=== PATIENT | female | born 1955 | race Caucasian/White ===

== ENCOUNTER 2016-08-09 11:44 | Inpatient (IN) | payer OTHER ==
[~2016-08-09] VITALS: Ht 149.9 cm; Wt 56.0 kg
[~2016-08-09 11:44] MED LIST: HYDR-3498 PO; OMEP20CA16 PO
[2016-08-09] MEDS ORDERED: SOD CHLORIDE 0.9% 1,000 ML IV STA (12:27)
--- NOTE | 2016-08-09 12:57 | RADRPT ---
PROCEDURE: XR Chest AP portable CLINICAL INDICATION: Chest pain TECHNIQUE: An AP portable radiograph of the chest was submitted. COMPARISON: None. FINDINGS: Support Hardware: None Cardiovascular: The cardiovascular silhouette appears unremarkable, except for atherosclerotic bowling e involving the aorta. Lung Haines: The lung haines appear clear with no nodule, alveolar infiltrate, for a interstitial pr ominence evident. Pleural Spaces: No pneumothorax or pleural effusion is identified. Osseous Structures: The osseous structures appear intact. Soft Tissues: Lobulated soft tissue density projects to the left axilla. IMPRESSION: 1. Lobulated calcific density projects to the left axilla. This could represent calcified adenopat hy or an external artifact. Clinical correlation is indicated. 2. Atherosclerotic aorta. 3. Otherwise, unremarkable portable chest. Physician Miriam Date Time Electronically viewed and signed by Jeanne Arevalo Physician on 08/09/2016 12:57 /
[2016-08-09 12:58] LABS: BASOPHILS % 0.7 % (0.0-2.0); EOSINOPHILS % 0.4 % (0.0-7.0); HEMATOCRIT 39.9 % (37.0-47.0); HEMOGLOBIN 13.6 g/dl (12.0-16.0); INR 0.98; LYMPHOCYTES # 1.3 10^3/ul (0.8-2.9); LYMPHOCYTES % 35.1 % (15.0-51.0); MEAN CORPUSCULAR HEMOGLOBIN 29.9 pg (29.0-33.0); MEAN PLATELET VOLUME 8.1 fl (7.4-10.4); MONOCYTE # 0.3 10^3/ul (0.3-0.9); NEUTROPHIL # 2.1 10^3/ul (1.6-7.5); NEUTROPHILS % 56.8 % (39.0-77.0); PLATELET COUNT 211 10^3/UL (140-440); RED BLOOD COUNT 4.54 10^6/ul (4.20-5.40); RED CELL DISTRIBUTION WIDTH 12.8 % (11.5-14.5); UNCORRECTED WBC 3.8 10^3/ul (4.8-10.8); WHITE BLOOD COUNT 3.8 10^3/ul (4.8-10.8)
[2016-08-09 12:59] LABS: PARTIAL THROMBOPLASTIN TIME 30.5 Sec (25.0-35.0)
[2016-08-09 13:01] LABS: CHLORIDE 101 mmol/L (97-110); CONDITION 1; POTASSIUM 3.5 mmol/L (3.5-5.1); SODIUM 144 mmol/L (135-144)
[2016-08-09 13:04] LABS: ANION GAP 16 (8-16); BLOOD UREA NITROGEN 8 mg/dl (7-20); CARBON DIOXIDE 31 mmol/L (21-31); CREATININE 0.49 mg/dl (0.44-1.00)
[2016-08-09 13:05] LABS: CALCIUM 9.1 mg/dl (8.4-10.2); GLUCOSE 91 mg/dl (70-220)
[2016-08-09 13:10] LABS: CREATINE KINASE 106 IU/L (23-200)
[2016-08-09 13:13] LABS: CK-MB 2.23 ng/ml (0.0-2.4)
[2016-08-09] MEDS ORDERED: OMEP20CA16 PO (13:14)
[2016-08-09] MEDS ORDERED: SIMV10TA PO (13:14)
[2016-08-09 13:24] LABS: TROPONIN-I < 0.012 ng/ml (0.00-0.12)
--- NOTE | 2016-08-09 13:40 | ERA ---
ER Documentation Chief Complaint Date/Time DATE: 08/09/16 TIME: 13:38 Chief Complaint sudden onset dizziness for about 2 wks. chest pain noted with onset HPI This is a 61-year-old female who presents to the emergency room for evaluation of dizziness and mild chest pain. She states that her chest pain started approximately 1 day ago. She localizes it to the center of her chest and describes as a pressure-like sensation with no radiation. She describes her dizziness as a room spinning sensation worse with change in position. No fevers , no palpitations associated with this. No aggravating or relieving factors. ROS All systems reviewed and are negative except as per history of present illness. Medications Home Meds Reported Medications Simvastatin* (Zocor*) 10 Mg Tablet, 10 MG PO QHS, #30 TAB 08/09/16 Omeprazole* (Omeprazole*) 20 Mg Capsule.dr, 20 MG PO DAILY, #30 CAP 08/09/16 Allergies Allergies: Coded Allergies: No Known Allergy (Unverified , 08/09/16) PMhx/Soc Medical and Surgical Hx: pt denies Surgical Hx History of Surgery: No Anesthesia Reaction: No Hx Neurological Disorder: No Hx Respiratory Disorders: No Hx Cardiac Disorders: Yes (hyperlipidemia) Hx Psychiatric Problems: No Hx Miscellaneous Medical Probl: Yes (GERD) Hx Alcohol Use: No Hx Substance Use: No Hx Tobacco Use: No Smoking Status: Never smoker Physical Exam Vitals Vital Signs Date Time Temp Pulse Resp B/P Pulse Ox O2 Delivery O2 Flow Rate FiO2 08/09/16 12:30 97.9 62 20 157/69 98 Room Air 08/09/16 11:51 97.9 65 20 170/74 98 Physical Exam INITIAL VITAL SIGNS: Reviewed by me GENERAL: The patient is well developed and appropriate for usual state of health in no apparent distress HEENT: Pupils equal, round, and reactive to light. EOMI. There is no scleral icterus. NECK: C-spine is soft and supple, there is no meningismus. There is no cervical lymphadenopathy. LUNGS: Clear to auscultation bilaterally. There are no rales, wheezes or rhonchi. HEART: Regular rate and rhythm, no murmurs, clicks, rubs or gallops. ABDOMEN: Soft, non-tender, non-distended. There are bowel sounds in all four quadrants. No rebound or guarding. EXTREMITIES: There is no peripheral cyanosis or edema. No focal swelling or erythema. NEUROLOGICAL: The patient moves all four extremities with 5/5 strength. Cranial nerves II - XII are intact. Normal gait. Alert and oriented SKIN: There is no apparent rash or petechiae. HEME/LYMPHATIC: There is no evidence of excessive bruising or lymphedema. PSYCHIATRIC: The patient does not appear anxious or depressed. Result Diagram: 08/09/16 1235 08/09/16 1235 Results 24 hrs Laboratory Tests Test 08/09/16 12:35 Activated Partial Thromboplast Time 30.5Sec Anion Gap 16 Basophils # 0.010^3/ul Basophils % 0.7% Blood Urea Nitrogen 8mg/dl Calcium Level 9.1mg/dl Carbon Dioxide Level 31mmol/L Chloride Level 101mmol/L Creatine Kinase 106IU/L Creatine Kinase Index 2.1 Creatinine 0.49mg/dl Creatinine Kinase MB (Mass) 2.23ng/ml Eosinophils # 0.010^3/ul Eosinophils % 0.4% Glucose Level 91mg/dl Hematocrit 39.9% Hemoglobin 13.6g/dl INR International Normalized Ratio 0.98 Lymphocytes # 1.310^3/ul Lymphocytes % 35.1% Mean Corpuscular Hemoglobin 29.9pg Mean Corpuscular Hemoglobin Concent 34.0g/dl Mean Corpuscular Volume 88.0fl Mean Platelet Volume 8.1fl Monocytes # 0.310^3/ul Monocytes % 7.0% Neutrophils # 2.110^3/ul Neutrophils % 56.8% Nucleated Red Blood Cells # 0.010^3/ul Nucleated Red Blood Cells % 0.0/100WBC Platelet Count 97593^3/UL Potassium Level 3.5mmol/L Prothrombin Time 13.0Sec Prothrombin Time Ratio 1.0 Red Blood Count 4.5410^6/ul Red Cell Distribution Width 12.8% Sodium Level 144mmol/L Troponin I < 0.012ng/ml White Blood Count 3.810^3/ul Current Medications Medications (Trade) Dose Ordered Sig/Gonsalo Route PRN Reason Start Time Stop Time Status Last Admin Dose Admin Sodium Chloride (NS) 1,000 ml @ 1,000 mls/hr Q1H STAT IV 08/09/16 12:27 08/09/16 13:26 DC 08/09/16 12:49 Ondansetron HCl (Zofran Inj) 4 mg ER BRIDGE PRN IV NAUSEA AND/OR VOMITING 08/09/16 14:00 08/10/16 13:59 Acetaminophen (Tylenol Tab) 650 mg ER BRIDGE PRN PO MILD PAIN/FEVER 08/09/16 14:00 08/10/16 13:59 Procedures/MDM EKG: Rate/Rhythm: [Normal Sinus Rhythm] QRS, ST, T-waves: [No changes consistent w/ acute ischemia] Impression: [No evidence of ischemia or arrhythmia] Chest X-ray 1V Interpreted by me: Soft Tissue: No acute abnormalities Bones: No acute abnormalities Mediastinum/Cardiac Silhouette/Lungs: [No acute abnormalities] This 61-year-old female presents to the emergency room for evaluation of chest pain. This patient does have history of hypertension and hyperlipidemia. First EKG is nonischemic, first troponin is normal. Chest x-ray is also normal. However given this patient's age and risk factors she will be placed in at this time for cardiac evaluation. The patient is okay the plan of care. She is hemodynamically stable at this time. Not hypoxic, will be placed in for admission under the care of her panel physician Dr. Bush. Departure Diagnosis: Primary Impression: Chest pain Additional Impressions: Dizziness Leukopenia Condition: Stable AIMEE PEREZ DO Aug 09, 2016 13:40
[2016-08-09] MEDS ORDERED: ACETAMINOPHEN 325 MG TAB PO PRN ×2 (14:00→14:30)
[2016-08-09] MEDS ORDERED: ONDANSETRON 4 MG INJ IV PRN ×2 (14:00→14:30)
[2016-08-09 14:13] VITALS: TEMP 97.9
[2016-08-09] MEDS ORDERED: MAGNESIUM HYDROXIDE 30ML CUP PO PRN (14:30)
[2016-08-09] MEDS ORDERED: LORAZEPAM 2 MG INJ IV PRN (14:30)
[2016-08-09] MEDS ORDERED: DOCUSATE SODIUM 100 MG CAP PO PRN (14:30)
[2016-08-09] MEDS ORDERED: ALBUTEROL/IPRATROPIUM (NEB) 3 ML AMP HHN PRN (14:30)
[2016-08-09] MEDS ORDERED: NACL 0.9% 3 ML SYG IV SCH (14:30)
[2016-08-09] MEDS ORDERED: hydrALAzine 20 MG INJ IV PRN (14:30)
[2016-08-09] MEDS ORDERED: HYDROCODONE/APAP (5/325) TAB PO PRN (14:30)
[2016-08-09] MEDS ORDERED: NA PHOSPHATE/BIPHOS 133 ML ENEMA PR PRN (14:30)
[2016-08-09] MEDS ORDERED: morphine 2 MG INJ IV PRN (14:30)
[2016-08-09] MEDS ORDERED: NITROGLYCERIN (SL) 0.4 MG TAB SL PRN (14:30)
[2016-08-09 15:06] VITALS: Ht 149.9 cm; Wt 56.0 kg
[2016-08-09 15:20] LABS: CREATINE KINASE 85 IU/L (23-200)
[2016-08-09 15:25] VITALS: BP 152/72; PULSE 65; RESP 20
[2016-08-09 15:31] LABS: CK-MB 1.81 ng/ml (0.0-2.4)
[2016-08-09 15:43] LABS: TROPONIN-I < 0.010 ng/ml (0.00-0.12)
[2016-08-09 16:05] VITALS: BP 136/70; RESP 18
--- NOTE | 2016-08-09 16:07 | HP ---
DATE OF ADMISSION: 08/09/2016 CHIEF COMPLAINT: A 61-year-old with chief complaint of chest pain and dizziness. HISTORY OF PRESENT ILLNESS: A 61-year-old female with past medical history of high cholesterol and GERD who presented to the emergency room. Apparently, the patient has been having some chest pain and some dizziness symptoms. The chest pain started about a day ago. She describes it as a pressure -like sensation, substernal, nonradiating. She also had some spinning sensation with dizziness that was worse with positioning, but denies any upper or lower GI bleeding, no loss of consciousness, no headaches, no fevers, no palpitations, no fevers or chills, no upper or lower GI bleeding. PAST MEDICAL HISTORY: As stated above. ALLERGIES: NO KNOWN DRUG ALLERGIES. MEDICATIONS AT HOME: 1. Simvastatin 10 mg at bedtime. 2. Omeprazole 20 mg daily. PAST SURGICAL HISTORY: None. FAMILY HISTORY: Unknown. SOCIAL HISTORY: Negative for smoking, drinking, or IV drug abuse. PHYSICAL EXAMINATION: VITAL SIGNS: T-max 97.9, pulse 62, respirations 20, blood pressure is to 157 to 170 systolic over 6 9 to 74 diastolic, saturating at 98% on room air. GENERAL: The patient is lying in bed, presently getting echocardiogram, no acute distress. HEENT: Pupils equal, round, react to light. Extraocular muscles intact. NECK: Supple, no thyromegaly. LUNGS: Clear to auscultation bilaterally. No wheezes. CARDIOVASCULAR: S1, S2 heard. No rubs or gallops. ABDOMEN: Soft, nontender, nondistended. Normal bowel sounds. No rebound or guarding. MUSCULOSKELETAL: No lower extremity edema bilaterally. NEUROLOGIC: No focal deficits. LABORATORIES: CBC is completely normal. The basic metabolic panel is normal. Troponin is negative x1. Coags are normal. IMAGING: A chest x-ray was performed, shows lobulated, calcified density projection to the left axi lla, could represent calcified adenopathy or external artifact, otherwise, unremarkable chest x-ray. ASSESSMENT AND PLAN: This is a 61-year-old female with dizziness symptoms and chest pain. We want to admit her to rule out for acute coronary syndrome, so admit her. 1. Chest pain. Admit her to telemetry floor; put her on morphine, oxygen, nitroglycerin, and oxyge n. Monitor blood pressure, trend her troponins as well, the first one is negative. She will be on again high dose aspirin. Get a 2D echocardiogram as well. If there are any abnormalities in any of these tests consider cardiology consult for possible stress test, try to clarify family history as well. 2. History of high cholesterol. Again, check a lipid panel, we will also check a TSH and an A1c. 3. History of gastroesophageal reflux disease. She will be on proton pump inhibitor. 4. GI prophylaxis PPI. 5. Deep venous thrombosis prophylaxis, heparin subcutaneously. We will continue to follow. Dictated By: LV SMILEY Conf#: [id number] DID#: [id number]
[2016-08-09] MEDS: SOD CHLORIDE 0.45% 1,000 ML IV SCH (16:22)
[2016-08-09 16:34] VITALS: PULSE 64
[2016-08-09 20:18] VITALS: BP 142/69; RESP 20
[2016-08-09 20:22] VITALS: PULSE 69
[2016-08-09 20:31] LABS: CREATINE KINASE 74 IU/L (23-200)
[2016-08-09 20:42] LABS: CK-MB 1.29 ng/ml (0.0-2.4)
[2016-08-09 20:45] LABS: TROPONIN-I < 0.012 ng/ml (0.00-0.12)
[2016-08-09] MEDS ORDERED: NON-FORMULARY/PATIENT OWN MED (Simvastatin* (Zocor*) 10 MG) PO SCH (21:00)
[2016-08-09] MEDS ORDERED: ATORVASTATIN 10 MG TAB PO SCH (21:00)
[2016-08-09] MEDS: HEPARIN 5,000 UNIT/0.5 ML SYG SC SCH (21:43)
[2016-08-10] VITALS (9 sets, daily range): BP systolic 114–127; BP diastolic 59–65; PULSE 62–69; RESP 16–20
[2016-08-10 01:31] LABS: CREATINE KINASE 69 IU/L (23-200)
[2016-08-10 01:39] LABS: CK-MB 1.23 ng/ml (0.0-2.4)
[2016-08-10 02:16] LABS: TROPONIN-I < 0.012 ng/ml (0.00-0.12)
[2016-08-10] MEDS: SOD CHLORIDE 0.45% 1,000 ML IV SCH (05:32)
[2016-08-10] MEDS ORDERED: PANTOPRAZOLE (EC) 40 MG TAB PO SCH (06:00)
[2016-08-10 07:26] LABS: CHOL/HDL RATIO 5.4 RATIO
[2016-08-10 07:57] LABS: BASOPHILS % 0.5 % (0.0-2.0); EOSINOPHILS % 1.1 % (0.0-7.0); HEMATOCRIT 37.9 % (37.0-47.0); HEMOGLOBIN 12.7 g/dl (12.0-16.0); LYMPHOCYTES # 1.2 10^3/ul (0.8-2.9); LYMPHOCYTES % 46.1 % (15.0-51.0); MEAN CORPUSCULAR HEMOGLOBIN 30.1 pg (29.0-33.0); MEAN CORPUSCULAR HGB CONC 33.6 g/dl (32.0-37.0); MEAN CORPUSCULAR VOLUME 89.5 fl (82.0-101.0); MEAN PLATELET VOLUME 8.6 fl (7.4-10.4); MONOCYTE # 0.3 10^3/ul (0.3-0.9); MONOCYTES % 10.8 % (0.0-11.0); NEUTROPHIL # 1.1 10^3/ul (1.6-7.5); NEUTROPHILS % 41.5 % (39.0-77.0); PLATELET COUNT 193 10^3/UL (140-440); RED BLOOD COUNT 4.24 10^6/ul (4.20-5.40); RED CELL DISTRIBUTION WIDTH 12.9 % (11.5-14.5); UNCORRECTED WBC 2.6 10^3/ul (4.8-10.8); WHITE BLOOD COUNT 2.6 10^3/ul (4.8-10.8)
[2016-08-10 07:59] LABS: CONDITION 1
[2016-08-10 08:18] LABS: THYROID STIMULATING HORMONE 0.421 MIU/L (0.465-4.680)
[2016-08-10] MEDS: HEPARIN 5,000 UNIT/0.5 ML SYG SC SCH (08:49)
[2016-08-10] MEDS ORDERED: ASPIRIN (EC) 325 MG TAB PO SCH (09:00)
[2016-08-10 10:18] LABS: POTASSIUM 3.9 mmol/L (3.5-5.1)
[2016-08-10 10:20] LABS: CREATININE 0.43 mg/dl (0.44-1.00)
[2016-08-10 10:21] LABS: PHOSPHORUS 4.6 mg/dl (2.5-4.9)
--- NOTE | 2016-08-10 13:44 | PDOCDIS ---
Discharge Instructions CONDITION Patient Condition: Stable HOME CARE INSTRUCTIONS: Diet Instructions: Regular ACTIVITY: Activity Restrictions: Slowly Increase Activity FOLLOW UP/APPOINTMENTS Appointments Please see your primary doctor in the clinic in 1 week. LV RONDON Aug 10, 2016 13:44
--- NOTE | 2016-08-10 15:26 | DS ---
DATE OF ADMISSION: 08/09/2016 DATE OF DISCHARGE: 08/10/2016 HOSPITAL COURSE: A 61-year-old female originally admitted on 08/09/2016 being discharged home on 08/10/2016. The patient came in with chest pain symptoms. She was admitted to telemetry floor. She had troponins checked x3. There were negative. She ruled out for acute coronary syndrome. There was an echocardiogram, result that was still pending, but over the course of her hospital stay, her dizziness and chest pain symptoms improved. She was able to ambulate and tolerate a p.o. diet and because her vital signs are stable as well , she will be discharged home today in improved condition. DISCHARGE MEDICATIONS: She will continue current medications that she is already on: 1. Omeprazole 20 mg daily. 2. Zocor 10 mg at bedtime. FOLLOWUP: She is to follow up with her primary care doctor in clinic in the next 1 to 2 weeks. FINAL DIAGNOSES: 1. Chest pain, ruled out for acute coronary syndrome. 2. High cholesterol. 3. Gastroesophageal reflux disease. Time spent discharging patient 35 minutes. Dictated By: LV SMILEY Conf#: [id number] DID#: [id number] MTDD
--- NOTE | 2016-08-10 20:39 | RADRPT ---
Echocardiogram Report Patient Name: ELLEN NARVAEZ Gender: Female Date: 1955 Study Date: 09-Aug-2016 Forensic Materials Engineer: [facility] Location: [facility] Ref. Physician: LV RONDON Quality: Adequate Procedures: Transthoracic echocardiogram with complete 2D, M-Mode, and doppler examination. Indications: Chest Pain. 2D/M Mode Doppler Measurement Value Normal Ranges Measurement Value Normal Ranges LVIDd 2D 4.0 3.5 - 5.6 cm AV Peak Jeremy 1.3 m/sec LVIDs 2D 2.4 2.1 - 4.1 cm AV Peak PG 7.0 mmHg FS 2D 40.3 % AI Peak PG 16.0 mmHg LVPWd 2D 1.1 0.6 - 1.1 cm AI Peak Jeremy 2.0 m/sec IVSd 2D 1.1 0.6 - 1.1 cm AI PHT 675.0 msec IVS/LVPW 2D 1.0 LVOT Peak Jeremy 0.9 m/sec AoR Diam 2D 3.1 2.0 - 3.7 cm LVOT Peak PG 3.0 mmHg LA/Ao 2D 1 0 - 1 MV E Peak Jeremy 0.9 m/sec EDV 2D 62.6 cm3 MV A Peak Jeremy 1.2 m/sec ESV 2D 13.3 cm3 MV E/A 0.7 LA Dimen 2D 3.6 2.3 - 4.0 cm MV Decel Time 197 msec MV E/A 0.7 TR Peak Jeremy 2.7 m/sec TR Peak PG 29.0 mmHg Findings Left Ventricle: Normal left ventricular systolic function. Normal left ventricular cavity size. Mild hypertrophy of the basal septum. Ejection fraction is visually estimated at 65 %. Tissue Doppler/Mitral Doppler indices are consistent with impaired relaxation (Stage I diastolic dysfunction). Right Ventricle: Normal right ventricular size. Normal right ventricular systolic function. Left Atrium: The left atrium is normal in size. Right Atrium: Right atrium at upper limits of normal. Mitral Valve: Mild mitral leaflet calcification. Mild mitral annular calcification. Trace mitral regurgitation. Aortic Valve: Aortic cusps appear mildly calcified. Trileaflet aortic valve. Mild aortic valve regurgitation. Tricuspid Valve: Tricuspid valve not well visualized. Estimated peak PA systolic pressure 37 mmHg. There is mild tricuspid regurgitation. Pulmonic Valve: Pulmonic valve not well visualized. There is mild pulmonic regurgitation. Pericardium: Normal pericardium with no significant pericardial effusion. Aorta: Normal aortic root. IVC: Dilated IVC with respiratory collapse consistent with elevated right atrial pressure. Conclusions 1.Normal left ventricular systolic function. Normal left ventricular cavity size. Mild hypertrophy of the basal septum. Ejection fraction is visually estimated at 65 %. Tissue Doppler/Mitral Doppler indices are consistent with impaired relaxation (Stage I diastolic dysfunction). 2.Aortic cusps appear mildly calcified. Trileaflet aortic valve. Mild aortic valve regurgitation. 3.Tricuspid valve not well visualized. Estimated peak PA systolic pressure 37 mmHg. There is mild tricuspid regurgitation. 4.Pulmonic valve not well visualized. There is mild pulmonic regurgitation. 5.Dilated IVC with respiratory collapse consistent with elevated right atrial pressure. Electronically Signed By: Emilio Ortiz 10-Aug-2016 20:38:40 -0800 Patient Name: ELLEN NARVAEZ Study Date: 09-Aug-2016 [id number]
== END 2016-08-10 15:50 | disposition home or self-care (01) | DRG 313 ==
LOC: E/R 11:44 → TEL 13:33 → MERGE 13:33
PROVIDERS: ADMIT Internal Medicine; ATTEND Internal Medicine
DX: R07.9 Chest pain, unspecified (principal); I10 Essential (primary) hypertension; K21.9 Gastro-esophageal reflux disease without esophagitis; E78.9 Disorder of lipoprotein metabolism, unspecified
CPT/HCPCS: 36415; 71010; 80048; 80061; 82550; 82553; 83036; 83735; 84100; 84439; 84443; 84484; 85025; 85610; 85730; 93005; 93306; J7030

== ENCOUNTER 2018-12-21 06:10 | Day surgery (SDC) | payer OTHER ==
[~2018-12-21] VITALS: Ht 162.6 cm; Wt 61.5 kg
[~2018-12-21 06:10] MED LIST changes: +SIMV10TA PO
[2018-12-21 06:53] VITALS: Ht 162.6 cm; Wt 61.5 kg
[2018-12-21 07:15] VITALS: BP 145/55; PULSE 57; RESP 16
[2018-12-21 09:00] VITALS: BP 120/71; PULSE 60; RESP 19
[2018-12-21] MEDS ORDERED: MIDAZOLAM 1 MG/ML 2 ML INJ ONE (09:02)
[2018-12-21] MEDS ORDERED: FENTAnyl 50 MCG/ML VIAL ONE (09:02)
== END 2018-12-21 15:28 | disposition home or self-care (01) ==
LOC: GIL 06:10
PROVIDERS: ATTEND Internal Medicine Gastroenterology
DX: Z12.11 Encounter for screening for malignant neoplasm of colon (principal); K64.8 Other hemorrhoids; D12.5 Benign neoplasm of sigmoid colon; K57.30 Diverticulosis of large intestine without perforation or abscess without bleeding
CPT/HCPCS: 45380; 88305; J2250; J3010